=== PATIENT | female | born 1935 | race Caucasian/White ===

== ENCOUNTER 2020-08-24 07:39 | Outpatient (CLI) | payer MEDICARE, BC, MEDICAID, SELFPAY ==
--- NOTE | ~2020-08-24 | MR_ITS ---
EXAMINATION: MR lumbar spine wo con DATE: 08/24/2020 09:11 INDICATION: Low back pain. Right hip pain. TECHNIQUE: Magnetic resonance imaging (MRI) of the lumbar spine was performed without intravenous con trast. Sequences included sagittal T2-weighted FSE, sagittal STIR FSE, sagittal T1-weighted FSE, and axial T2-weighted FSE. COMPARISON: Lumbar spine MRI 01/04/2009 FINDINGS: There is 9 degrees levocurvature of lumbar spine. There is 6 mm anterolisthesis of L3 on L4 and 9 mm anterolisthesis of L4 on L5. There is chronic height loss of L3, L4, and L5 vertebral miracle s. There are changes of posterior fusion procedure from L2 to L5 with pedicle screws. There is mildly decreased disc height at L1-L2, moderately decreased disc height at L2-L3 and L3-L4, and severely de creased disc height at L4-L5 and L5-S1. The distal spinal cord signal intensity is normal. The conus medullaris is at L1. The following disc levels are specifically discussed: L1-L2: The disc is bulging. There is mild bilateral facet joint osteoarthritis. There is moderate rig ht and mild left neural foraminal stenosis. There is mild central canal stenosis. L2-L3: The disc is bulging and has an annular fissure. There is moderate bilateral facet joint osteoa rthritis. There is mild bilateral neural foraminal stenosis. There is mild central canal stenosis wit h posterior decompression. L3-L4: The disc is bulging and has an annular fissure. There is moderate right and severe left facet joint osteoarthritis. There is moderate right and mild left neural foraminal stenosis. There is mild central canal stenosis with posterior decompression. L4-L5: The disc is bulging. There is severe bilateral facet joint osteoarthritis. There is moderate r ight and mild left neural foraminal stenosis. There is mild central canal stenosis with posterior dec ompression. L5-S1: The disc is bulging and has an annular fissure. There is moderate right and severe left facet joint osteoarthritis. There is moderate bilateral neural foraminal stenosis. There is mild central ca nal stenosis. IMPRESSION: 1. Severe lumbar spondylosis, worsened from 03/06/2009. 2. Posterior fusion procedure from L2 to L5. Reviewed, dictated and finalized at location A. [facility]
--- NOTE | ~2020-08-24 | XR_ITS ---
EXAMINATION: XR hip RT min 2V DATE: 08/24/2020 08:21 INDICATION: Right hip pain. TECHNIQUE: 2 views of right hip were obtained. COMPARISON: Lumbar spine radiographs 01/04/2009 FINDINGS: Bone alignment is normal. There is collapse of the articular surface of right femoral head. There is moderate right hip osteoarthritis. A vascular stent overlies right pelvis. There are change s of posterior fusion procedure in lumbar spine. IMPRESSION: 1. 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 2. Moderate right hip osteoarthritis. Reviewed, dictated and finalized at location A. [facility]
== END 2020-08-24 07:40 | disposition home or self-care (01) ==
LOC: ANHIMG 07:59
PROVIDERS: Visit Provider Nurse Practitioner Family
DX: M47.26 Other spondylosis with radiculopathy, lumbar region (principal); Z98.1 Arthrodesis status; M16.11 Unilateral primary osteoarthritis, right hip
CPT/HCPCS: 72148; 73502